=== PATIENT | female | born 2000 | race Caucasian/White ===

== ENCOUNTER 2021-01-14 11:40 | Emergency (ER) | payer MEDICAID ==
[~2021-01-14] VITALS: Ht 152.4 cm; Wt 60.0 kg
[~2021-01-14 11:40] MED LIST: NAPR-677 PO; ONDA4TAB8 PO
[2021-01-14] MEDS ORDERED: KETOROLAC 60MG/2ML VIAL IM ONE (13:00)
[2021-01-14 14:32] VITALS: BP 109/78
== END 2021-01-14 14:33 | disposition home or self-care (01) ==
LOC: ER 11:40
DX: J34.89 Other specified disorders of nose and nasal sinuses (principal); V43.52XA Car driver injured in collision with other type car in traffic accident, initial encounter; Y93.89 Activity, other specified; Y92.410 Unspecified street and highway as the place of occurrence of the external cause
CPT/HCPCS: 70160; 81025; 96372; 99283; J1885; Z7610

== ENCOUNTER 2022-01-02 18:42 | Emergency (ER) | payer MEDICAID ==
[~2022-01-02] VITALS: Ht 157.5 cm; Wt 46.0 kg
[2022-01-02] MEDS ORDERED: VISCOUS LIDOCAINE 2% 15 ML UDC MM STA (20:26)
[2022-01-02] MEDS ORDERED: FAMOTIDINE 20MG TABLET PO ONE (20:30)
[2022-01-02] MEDS ORDERED: ONDANSETRON 4MG ODT PO ONE (20:30)
[2022-01-02] MEDS ORDERED: MAGNESIUM/ALUMINUM HYDROXIDE/SIMETHICONE 30ML UDC PO ONE (20:30)
[2022-01-02 21:36] LABS: CLARITY URINE CLEAR (CLEAR); COLOR URINE YELLOW (YELLOW); KETONES URINE 3+ (NEGATIVE); LEUKOCYTE ESTERASE URINE NEGATIVE (NEGATIVE); NITRITE URINE NEGATIVE (NEGATIVE); OCCULT BLOOD URINE NEGATIVE (NEGATIVE); PROTEIN URINE 2+ (NEGATIVE); SPECIFIC GRAVITY URINE 1.029 (1.005-1.030); UROBILINOGEN URINE 0.2 E.U./dL (0.2-1.0)
[2022-01-02 21:49] LABS: BASOPHILS % 0.3 % (0.0-2.0); HEMATOCRIT. 39.1 % (36.0-48.0); HEMOGLOBIN. 13.4 g/dL (12.0-16.0); LYMPHOCYTES % 11.9 % (20.0-50.0); MEAN CORPUSCULAR HEMOGLOBIN 32.8 pg (28.0-32.0); MEAN CORPUSCULAR VOLUME 95.6 fL (81.0-99.0); MEAN PLATELET VOLUME 8.6 fl (7.4-10.4); MONOCYTES % 2.2 % (2.0-8.0); NEUTROPHILS % 85.6 % (40.0-76.0); PLATELET 179 x1000/uL (130-400); RED BLOOD CELL COUNT 4.09 mill/uL (4.2-5.4); RED CELL DISTRIBUTION WIDTH 12.5 % (11.6-14.6)
[2022-01-02 22:10] LABS: CHLORIDE 103 mEq/L (98-107)
[2022-01-02] MEDS ORDERED: FAMO40TA70 MT (22:27)
[2022-01-02 22:41] VITALS: BP 108/65
== END 2022-01-02 22:43 | disposition home or self-care (01) ==
LOC: ER 18:48
DX: K29.20 Alcoholic gastritis without bleeding (principal); G43.909 Migraine, unspecified, not intractable, without status migrainosus; F10.10 Alcohol abuse, uncomplicated; Y90.9 Presence of alcohol in blood, level not specified; Z20.822 Contact with and (suspected) exposure to COVID-19; Z97.5 Presence of (intrauterine) contraceptive device; Z87.81 Personal history of (healed) traumatic fracture
CPT/HCPCS: 36415; 80053; 81003; 81025; 83690; 85025; 87426; 87804; 99284; C9803; Q0162